=== PATIENT | female | born 1940 | race Caucasian/White ===

== ENCOUNTER 2016-05-14 05:00 | Inpatient (IN) | payer OTHER ==
--- NOTE | ~2016-05-14 | HP ---
Unit #: [id number] #: [id number] Patient: JOSEPH GEORGE [id number] [facility]. [place], [place] [address] [id number] I MR#: [id number] NAME: JOSEPH GEORGE ROOM: 562 Age: 75 Sex: F Admission Date: 05/13/2016 : 1940 Attending Physician: Hillary Ponce M.D. Primary Care Physician: Wilber Kauffman M.D. HISTORY AND PHYSICAL CHIEF COMPLAINT Possible right-sided PE. 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 Patient was recently admitted to [facility] two weeks ago for back pain. She was found to have metastatic disease from her lung cancer to her spine. Underwent XRT and multiple kyphoplasties. She now is unable to move her legs. She was transferred to a fpc for further care. At the fpc was noted to be dyspneic and therefore, sent to [facility] emergency department. The patient denies any symptoms except for weakness. [facility] emergency department CTA was performed to the chest, which was a somewhat limited exam, but was suspicious for a subsegmental pulmonary emboli in the right lung. She was also noted to have progressive metastatic disease to the spine, left third rib, increasing mass left pulmonary apex, increasing adenopathy, and new subcutaneous nodules worrisome for mets. Metastatic disease in the right hepatic lobe, right kidney and likely spleen. She was given a dose of Lovenox, sent to this facility for further treatment. The patient at this time denies worsening shortness of breath or chest pain, no leg pain. PAST MEDICAL HISTORY 1. Adenocarcinoma of the lung diagnosed 12/2001, status post partial left pneumonectomy. The patient was recently found to have mets to the spine and required radiation and multiple kyphoplasties at [facility]. 2. COPD. 3. Total abdominal hysterectomy. 4. Left partial pneumonectomy. 5. Tonsillectomy. ALLERGIES No known drug allergies. RETIREMENT MEDICATIONS Multivitamin daily; Pepcid 20 mg; Colace 100 mg; [place] 5/325 q.6 hours as needed; and p.r.n. Tylenol. FAMILY HISTORY Negative for CAD. Unit #: [id number] #: [id number] Patient: JOSEPH GEORGE SOCIAL HISTORY The patient lives at [facility]. Remote history of tobacco use. Does not drink alcohol. REVIEW OF SYSTEMS Difficult to obtain as patient is a bit dyspneic. PHYSICAL EXAMINATION GENERAL: Pleasant, chronically ill-appearing 75-year-old female currently in no acute distress. VITAL SIGNS: Temperature 97.9, pulse 102, respirations 16, blood pressure 120/67. HEENT: Eyes - PERRLA, extraocular muscles are intact. Pharynx is benign. NECK: Supple without thyromegaly. The patient does have a left posterior palpable lymph node. CHEST: Diminished breath sounds with some slight wheeze on the left. CARDIAC: Normal S1 and S2 with a very soft systolic murmur best heard at the right upper sternal border. ABDOMEN: Bowel sounds are present. No hepatosplenomegaly, tenderness or masses. EXTREMITIES: Mild edema of the left as compared to the right. NEUROLOGIC: Patient is awake, alert and she is oriented. Cranial nerves are intact. Equal strength in the arms but is unable to move her legs. DIAGNOSTIC STUDIES LABORATORY STUDIES: Hematocrit is 41.1, white blood count 15.4, normal platelet count. SMA 12 - albumin is 2.7, protein 6.2, BUN 36 with a normal creatinine, lactic acid normal. Troponin 0.06. Urinalysis - 2-5 red cells, no white cells. CARDIOLOGY STUDIES: EKG - sinus tachycardia rate 110, left axis deviation. IMAGING STUDIES: CTA of the chest - limited evaluation but suspicious for subsegmental right-sided pulmonary emboli. New metastatic disease to the spine, left third rib. Pulmonary nodules. Increasing left pulmonary apex mass with small pleural effusions. Increasing adenopathy. New subcutaneous nodules, splenic nodule, right hepatic nodule and findings worrisome for metastatic disease to the kidneys. ASSESSMENT 1. Possible right-sided pulmonary emboli. 2. Stage 4 adenocarcinoma of the lung with progressive metastatic disease. 3. 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 4. COPD. PLANS 1. Continue Lovenox, check Dopplers of the legs. 2. Patient's oncologist to see. 3. IV fluids. 4. Repeat labs this morning. 5. Clarify code status. 6. I asked the patient if she had a living will. She tells me that she does have a living will but tells me to speak to her sister about what the living will says. At the fpc she was a full code. Unit #: [id number] #: [id number] Patient: JOSEPH GEORGE 7. Prognosis poor. Dictated by Hillary Ponce M.D. AML/ts TD: 05/14/2016 06:20 JOB #: [id number] HISTORY AND PHYSICAL Page 1 of 1 X Hillary Ponce MD X HISTORY AND PHYSICAL
--- NOTE | ~2016-05-14 | DS ---
Unit #: [id number] #: [id number] Patient: JOSEPH GEORGE [id number] [address] [id number] I MR#: [id number] NAME: JOSEPH GEORGE ROOM: 562 Age: 75 Sex: F Admission Date: 05/14/2016 : 1940 Discharge Date: 05/16/2016 Attending Physician: Renae Marcum M.D. Primary Care Physician: Wilber Kauffman M.D. DISCHARGE SUMMARY SUMMARY DATE OF 05/16/2016. FINAL DIAGNOSES 1. Failure to thrive. 2. Stage 4 pulmonary adenocarcinoma with metastasis to bone. 3. Right-sided PE. SECONDARY DIAGNOSIS Chronic obstructive pulmonary disease. CONSULTANTS Dr. Garcia. HOSPITAL COURSE The patient is a 75-year-old female with stage 4 adenocarcinoma, who presented with what looked like PE. She was transferred in from an outside hospital. She was anticoagulated. She was seen by oncology and failure to thrive. Hospice was consulted. She was placed on comfort medication and eventually succumbed to the disease and . Dictated by... Junaid Gudino/josselin TD: 05/17/2016 14:07 JOB #: [id number] DISCHARGE SUMMARY Page 1 of 1 X Renae Marcum MD X DISCHARGE SUMMARY
--- NOTE | ~2016-05-14 | US84 ---
[id number] [facility]. [facility] [address] [facility]. [place], [place] [address] [id number] I MR#: [id number] Acc #: [id number] NAME: JOSEPH GEORGE : 1940 SEX: F STUDY DATE/TIME: 05/14/2016 15:44 UNIT: [id number] ROOM: 562 STUDY DESCRIPTION: US LE Veins Complete Mauricio Stdy Attending Physician: Nadia Kilgore M.D. Ordering Physician: Hillary Ponce M.D. Primary Care Physician: Wilber Kauffman M.D. MEDICAL IMAGING REPORT This report is preliminary unless electronic signature is present EXAM Bilateral lower extremity venous Doppler INDICATIONS Shortness of air for the past 2 weeks. PROCEDURE Meade-scale color Doppler and spectral imaging deep veins of the right and left leg. COMPARISON None FINDINGS Deep veins in the right leg compress normally and show normal color Doppler and spectral characteristics. In the left leg there is nearly occlusive DVT in the left common femoral vein, left peroneal vein and left posterior tibial vein. IMPRESSION Nearly occlusive DVT in the left common femoral vein, peroneal vein and posterior tibial vein. Dictated by... Dino Sotelo M.D. THIS IS AN ELECTRONICALLY VERIFIED REPORT Dino Sotelo M.D. at 05/16/2016 9:51 PM ABEL/danika TD: 05/14/2016 23:10 JOB #: [id number] MEDICAL IMAGING REPORT Page 1 of 1 COPY
[2016-05-14] MEDS ORDERED: HYDROCODON-ACE1 EAC7 PO (07:53)
[2016-05-14] MEDS ORDERED: TYLENOL EXTRA500 M1 PO (07:54)
[2016-05-14] MEDS ORDERED: ONE DAILY HEAL1 EACH PO (07:58)
[2016-05-14] MEDS ORDERED: DOCUSATE SODIU100 MG PO (07:59)
[2016-05-14] MEDS ORDERED: FAMOTIDINE PO (08:00)
[2016-05-15 06:25] LABS: HEMATOCRIT 34.8 % (35.0-45.0); HEMOGLOBIN 11.1 gm/dL (12.0-16.0); MEAN CELL VOLUME 88.6 FL (83-96); MEAN CORPUSCULAR HEMOGLOBIN 28.4 PG (28-34); MEAN PLATELET VOLUME 7.8 FL (6.5-11.5); RED BLOOD COUNT 3.92 X10e (3.90-5.30); RED CELL DISTRIBUTION WIDTH 16.3 % (11.0-15.5); WHITE BLOOD COUNT 13.3 X10e3 (4.0-10.5)
[2016-05-15 06:37] LABS: INR 1.2; PROTHROMBIN TIME (PATIENT) 12.3 SECONDS (9.6-11.5)
[2016-05-15 06:51] LABS: ALBUMIN SERUM 2.2 g/dL (3.5-5.0); BILIRUBIN,TOTAL 0.6 mg/dL (0.2-2.0); CALCIUM SERUM 7.9 mg/dL (8.4-10.2); CREATININE SERUM 0.5 mg/dL (0.6-1.4); GLOM FILT RATE Estimated 94.7 mL/min (>60); POTASSIUM 3.9 mmol/L (3.5-5.1); PROTEIN TOTAL SERUM 5.1 g/dL (6.0-8.3)
== END 2016-05-16 14:20 | disposition expired | DRG 542 ==
LOC: C5B 05:00
PROVIDERS: Internal Medicine
DX: C79.51 Secondary malignant neoplasm of bone (principal); I26.99 Other pulmonary embolism without acute cor pulmonale; C78.89 Secondary malignant neoplasm of other digestive organs; C34.90 Malignant neoplasm of unspecified part of unspecified bronchus or lung; C79.01 Secondary malignant neoplasm of right kidney and renal pelvis; J44.9 Chronic obstructive pulmonary disease, unspecified; C78.7 Secondary malignant neoplasm of liver and intrahepatic bile duct; I82.402 Acute embolism and thrombosis of unspecified deep veins of left lower extremity; Z66 Do not resuscitate; R62.7 Adult failure to thrive; Z90.710 Acquired absence of both cervix and uterus
CPT/HCPCS: 80053; 82550; 84484; 85027; 85610; 93970; 94640; 94760; J1650; J2060; J2270